=== PATIENT | male | born 1945 | race Caucasian/White ===

== ENCOUNTER 2016-12-24 18:04 | Inpatient (IN) | payer OTHER ==
[~2016-12-24] VITALS: Ht 167.6 cm; Wt 108.9 kg
[~2016-12-24 18:04] MED LIST: CALCITRIOL0.25 MCG PO; CARDURA4 MG PO; CATAPRES0.1 MG PO; Cardura PO; LANTUS 3 M100 UNITS1 SC; LISINOPRIL40 MG PO; Lasix PO; MIRALAX, GLYCOL1 PK1 PO; NOVOLOG PE100 UNITS/ SC; Norvasc PO; PROTONIX40 MG PO; Phoslo PO; REGLAN5 MG PO; Rocaltrol PO; SENSIPAR60 MG PO; SODIUM BICARBO325 M1 PO; Sodium Bicarbonate PO; ZEMPLAR5 MCG/ML IV; ZESTRIL20 MG PO; Zestril,Prinivil PO
[2016-12-24 19:30] LABS: BASOPHIL COUNT 0.1 K/uL (0-0.1); EOSINOPHIL (%) 5.5 % (0-5); EOSINOPHIL COUNT 0.7 K/uL (0-0.3); IMMATURE GRANULOCYTE (%) 0.6 % (0.0-0.7); IMMATURE GRANULOCYTE COUNT 0.1 K/uL; LYMPHOCYTE COUNT 0.5 K/uL (1.0-2.8); MCHC 33.6 G/DL (30.0-36.0); MCV 89.5 FL (86-99); MEAN PLAT.VOLUME 9.6 uM^3 (9.0-12.4); MONOCYTE (%) 8.9 % (3-12); MONOCYTE COUNT 1.1 K/uL (0-0.8); NEUTROPHIL (%) 80.2 % (45-76); PLATELET COUNT 252 K/uL (156-360); RBC DIS.WIDTH-CV 15.3 % (11.8-14.6); RBC DIS.WIDTH-SD 49.1 % (39-53); RED BLOOD COUNT 3.13 M/uL (4.00-5.50); WHITE BLOOD COUNT 12.4 K/uL (4.1-10.2)
[2016-12-24 19:33] LABS: CHLORIDE 86 mEq/L (99-109); POTASSIUM 4.5 mEq/L (3.7-5.4); SODIUM 125 mEq/L (136-147)
[2016-12-24 19:34] LABS: GLUCOSE 79 mg/dL (70-99)
[2016-12-24 19:36] LABS: ANION GAP 17 MEQ/L (2-14)
[2016-12-24 19:38] LABS: GFR ESTIMATE (CALCULATED) 7 mL/min/
[2016-12-24 19:39] LABS: UREA NITROGEN (BUN) 75 mg/dL (9-23)
[2016-12-24 19:45] LABS: TROP-I INTERPRETATION POSITIVE
[2016-12-24 19:46] LABS: TROPONIN-I 0.79 ng/mL (0.0-0.30)
[2016-12-24 20:22] LABS: INTER. NORMALIZED RATIO 1.2
[2016-12-24 20:24] LABS: PTT 38.5 SEC (25-37)
[2016-12-24] MEDS ORDERED: FOSRENOL1000 MG PO ×2 (21:04)
[2016-12-24] MEDS ORDERED: ATORVASTATIN CA40 MG PO (21:05)
[2016-12-24] MEDS ORDERED: NEXIUM40 MG PO (21:05)
[2016-12-24] MEDS ORDERED: LIDOCAINE-PRIL1 EACH TP (21:05)
[2016-12-24] MEDS ORDERED: [UNRECOGNIZED DRUG - OTHER] PO (21:05)
[2016-12-24 22:55] VITALS: BP 167/74
[2016-12-24 23:54] LABS: POINT-OF-CARE METER ID UU13113698
[2016-12-25 00:44] VITALS: BP 146/70
[2016-12-25 01:28] LABS: TROP-I INTERPRETATION POSITIVE
[2016-12-25 01:31] LABS: TROPONIN-I 0.77 ng/mL (0.0-0.30)
[2016-12-25 03:50] VITALS: BP 156/73
[2016-12-25 04:48] LABS: HEMATOCRIT 27.2 % (38.0-50.0); MCH 30.6 PG (29.0-34.0); MCHC 33.8 G/DL (30.0-36.0); MCV 90.4 FL (86-99); PLATELET COUNT 233 K/uL (156-360); RBC DIS.WIDTH-CV 15.3 % (11.8-14.6); RBC DIS.WIDTH-SD 50.1 % (39-53); RED BLOOD COUNT 3.01 M/uL (4.00-5.50); WHITE BLOOD COUNT 10.6 K/uL (4.1-10.2)
[2016-12-25 05:00] LABS: CHLORIDE 85 mEq/L (99-109); SODIUM 127 mEq/L (136-147)
[2016-12-25 05:02] LABS: GLUCOSE 55 mg/dL (70-99)
[2016-12-25 05:03] LABS: ANION GAP 19 MEQ/L (2-14)
[2016-12-25 05:06] LABS: GFR ESTIMATE (CALCULATED) 7 mL/min/
[2016-12-25 05:07] LABS: UREA NITROGEN (BUN) 80 mg/dL (9-23)
[2016-12-25 05:10] LABS: TROP-I INTERPRETATION POSITIVE
[2016-12-25 05:15] LABS: TROPONIN-I 0.73 ng/mL (0.0-0.30)
[2016-12-25 07:25] VITALS: BP 145/82
[2016-12-25 08:34] LABS: POINT-OF-CARE USER ID NUTSLF44
[2016-12-25 09:47] LABS: POINT-OF-CARE USER ID NUTSLF44
[2016-12-25 12:23] LABS: POINT-OF-CARE USER ID NUTSLF44
[2016-12-25 21:28] LABS: INTER. NORMALIZED RATIO 1.5; PROTHROMBIN TIME 17.1 SEC (10.2-12.9)
[2016-12-25 21:39] LABS: PTT 83.1 SEC (25-37)
[2016-12-25 21:45] VITALS: BP 142/65
[2016-12-25 22:04] LABS: POINT-OF-CARE METER ID UU13113698
[2016-12-25 22:44] VITALS: BP 140/67
[2016-12-25 23:22] VITALS: BP 140/62
[2016-12-26 03:59] VITALS: BP 138/64
[2016-12-26 07:15] VITALS: BP 163/70
[2016-12-26 07:45] LABS: POINT-OF-CARE METER ID UU13113698
[2016-12-26 08:00] LABS: HEMATOCRIT 26.9 % (38.0-50.0); MCH 30.1 PG (29.0-34.0); MCHC 33.8 G/DL (30.0-36.0); MCV 89.1 FL (86-99); MEAN PLAT.VOLUME 9.7 uM^3 (9.0-12.4); PLATELET COUNT 281 K/uL (156-360); RBC DIS.WIDTH-CV 15.4 % (11.8-14.6); RED BLOOD COUNT 3.02 M/uL (4.00-5.50)
[2016-12-26 08:33] LABS: ANION GAP 18 MEQ/L (2-14); CHLORIDE 81 MEQ/L (99-109); GLUCOSE 66 mg/dL (70-99); SAMPLE HEMOLYSIS CHECK 0; SAMPLE ICTERIC CHECK 0; SAMPLE LIPEMIA CHECK 0; UREA NITROGEN (BUN) 84 mg/dL (9-23)
[2016-12-26 08:34] LABS: GFR ESTIMATE (CALCULATED) 6 mL/min/; POTASSIUM 6.1 MEQ/L (3.7-5.4); SODIUM 120 MEQ/L (136-147)
[2016-12-26 09:28] LABS: POINT-OF-CARE METER ID UU13113681
[2016-12-26 10:17] LABS: MAGNESIUM 2.3 mg/dl (1.3-2.7)
[2016-12-26 12:24] LABS: POINT-OF-CARE METER ID UU13113698; POINT-OF-CARE USER ID NUTSLF44
[2016-12-26 12:37] VITALS: BP 175/74; BP 75/74
[2016-12-26 13:34] LABS: POINT-OF-CARE METER ID UU13113698; POINT-OF-CARE USER ID NUTSLF44
[2016-12-26 16:00] VITALS: BP 167/70
[2016-12-26 16:54] LABS: HEMATOCRIT 27.3 % (38.0-50.0); MCHC 35.2 G/DL (30.0-36.0); MEAN PLAT.VOLUME 9.4 uM^3 (9.0-12.4); PLATELET COUNT 288 K/uL (156-360); RBC DIS.WIDTH-CV 15.7 % (11.8-14.6); RBC DIS.WIDTH-SD 51.3 % (39-53)
[2016-12-26 17:19] LABS: POINT-OF-CARE METER ID UU13113698; POINT-OF-CARE USER ID NUTSLF44
[2016-12-26 19:50] LABS: ANION GAP 15 MEQ/L (2-14); CHLORIDE 88 MEQ/L (99-109); SAMPLE HEMOLYSIS CHECK 0; SAMPLE ICTERIC CHECK 0; SAMPLE LIPEMIA CHECK 0; TOTAL BILIRUBIN 0.5 MG/DL (0.0-1.0)
[2016-12-26 19:52] LABS: POTASSIUM 4.1 MEQ/L (3.7-5.4); SODIUM 134 MEQ/L (136-147)
[2016-12-26 19:55] LABS: ALKALINE PHOSPHATASE 107 IU/L (3-129); GFR ESTIMATE (CALCULATED) 11 mL/min/
[2016-12-26 20:03] LABS: GLUCOSE 130 mg/dL (70-99); UREA NITROGEN (BUN) 35 mg/dL (9-23)
[2016-12-26 20:25] VITALS: BP 152/68
[2016-12-26 22:02] LABS: POINT-OF-CARE METER ID UU13113803
[2016-12-26 23:26] VITALS: BP 129/56
[2016-12-27 04:15] VITALS: BP 157/69
[2016-12-27 07:44] LABS: ANION GAP 15 MEQ/L (2-14); CHLORIDE 90 MEQ/L (99-109); GFR ESTIMATE (CALCULATED) 9 mL/min/; GLUCOSE 126 mg/dL (70-99); SAMPLE HEMOLYSIS CHECK 0; SAMPLE ICTERIC CHECK 0; SAMPLE LIPEMIA CHECK 0; SODIUM 133 MEQ/L (136-147); UREA NITROGEN (BUN) 37 mg/dL (9-23)
[2016-12-27 07:47] VITALS: BP 199/91
[2016-12-27 07:55] LABS: POINT-OF-CARE METER ID UU13113803
[2016-12-27 08:16] LABS: POINT-OF-CARE METER ID UU13113803
[2016-12-27 09:30] LABS: POINT-OF-CARE METER ID UU13113803
[2016-12-27 11:37] LABS: POINT-OF-CARE METER ID UU13113803
[2016-12-27 12:08] VITALS: BP 138/58
[2016-12-27 15:45] VITALS: BP 124/68
[2016-12-27 16:34] LABS: POINT-OF-CARE METER ID UU13113803
[2016-12-27 18:59] LABS: ANION GAP 17 MEQ/L (2-14); CHLORIDE 90 MEQ/L (99-109); GFR ESTIMATE (CALCULATED) 8 mL/min/; GLUCOSE 110 mg/dL (70-99); POTASSIUM 4.7 MEQ/L (3.7-5.4); SAMPLE HEMOLYSIS CHECK 0; SAMPLE ICTERIC CHECK 0; SAMPLE LIPEMIA CHECK 0; SODIUM 135 MEQ/L (136-147); UREA NITROGEN (BUN) 44 mg/dL (9-23)
[2016-12-27 21:00] VITALS: BP 117/51
[2016-12-28 02:00] VITALS: BP 135/61
[2016-12-28 04:31] VITALS: BP 130/74
[2016-12-28 05:34] LABS: HEMATOCRIT 26.3 % (38.0-50.0); MCH 31.7 PG (29.0-34.0); MCHC 33.5 G/DL (30.0-36.0); MCV 94.6 FL (86-99); MEAN PLAT.VOLUME 9.6 uM^3 (9.0-12.4); PLATELET COUNT 265 K/uL (156-360); RBC DIS.WIDTH-CV 15.8 % (11.8-14.6); RBC DIS.WIDTH-SD 54.5 % (39-53); RED BLOOD COUNT 2.78 M/uL (4.00-5.50); WHITE BLOOD COUNT 12.4 K/uL (4.1-10.2)
[2016-12-28 06:20] LABS: ANION GAP 16 MEQ/L (2-14); CHLORIDE 89 MEQ/L (99-109); GFR ESTIMATE (CALCULATED) 8 mL/min/; GLUCOSE 96 mg/dL (70-99); POTASSIUM 4.8 MEQ/L (3.7-5.4); SAMPLE HEMOLYSIS CHECK 0; SAMPLE ICTERIC CHECK 0; SAMPLE LIPEMIA CHECK 0; SODIUM 133 MEQ/L (136-147); UREA NITROGEN (BUN) 47 mg/dL (9-23)
[2016-12-28 07:40] LABS: POINT-OF-CARE METER ID UU13113781
[2016-12-28 07:49] LABS: ADD MIUA? YES; BILIRUBIN NEGATIVE; BLOOD MODERATE; COLOR YELLOW ((YELLOW)); GLUCOSE (STRIP) 150; KETONES NEGATIVE; LEUKOCYTES MODERATE; NITRITE NEGATIVE; PROTEIN (STRIP) 100; SPECIFIC GRAVITY 1.015 (1.000-1.030); UROBILINOGEN 0.2 MG/DL (0.2-1.0)
[2016-12-28 07:57] VITALS: BP 130/61
[2016-12-28 08:14] LABS: RED BLOOD CELLS 20-30 /HPF (0-5); WHITE BLOOD CELLS TNTC /HPF (0-5)
[2016-12-28 08:15] LABS: BACTERIA 2+ /HPF; CASTS NONE SEEN /LPF; CRYSTALS PRESENT; EPITHELIAL CELLS 2+ /HPF; MUCUS NONE SEEN /LPF
[2016-12-28 08:16] LABS: AMORPHOUS URATES CRYSTALS 4+
[2016-12-28 12:26] VITALS: BP 121/56
[2016-12-28 12:42] LABS: POINT-OF-CARE METER ID UU13113781
[2016-12-28 15:55] VITALS: BP 174/73
[2016-12-28 19:45] VITALS: BP 158/70
[2016-12-29 00:27] VITALS: BP 145/81
[2016-12-29 02:17] VITALS: BP 132/74
[2016-12-29 07:30] VITALS: BP 157/63
[2016-12-29 08:04] LABS: POINT-OF-CARE USER ID ENVKC36
[2016-12-29 11:32] LABS: POINT-OF-CARE METER ID UU13113803
[2016-12-29 12:00] VITALS: BP 156/67
[2016-12-29 15:54] VITALS: BP 163/67
[2016-12-29 16:32] LABS: POINT-OF-CARE USER ID ENVKC36
[2016-12-29 20:30] VITALS: BP 187/94
[2016-12-30] VITALS (7 sets, daily range): BP systolic 104–175; BP diastolic 51–75
[2016-12-30 06:12] LABS: HEMATOCRIT 28.4 % (38.0-50.0); MCH 29.8 PG (29.0-34.0); MCV 96.3 FL (86-99); MEAN PLAT.VOLUME 9.6 uM^3 (9.0-12.4); PLATELET COUNT 298 K/uL (156-360); RBC DIS.WIDTH-CV 15.8 % (11.8-14.6); RBC DIS.WIDTH-SD 55.8 % (39-53); RED BLOOD COUNT 2.95 M/uL (4.00-5.50); WHITE BLOOD COUNT 11.3 K/uL (4.1-10.2)
[2016-12-30 07:24] LABS: POINT-OF-CARE METER ID UU13113803
[2016-12-30 09:00] LABS: ANION GAP 13 MEQ/L (2-14); CHLORIDE 95 MEQ/L (99-109); GFR ESTIMATE (CALCULATED) 9 mL/min/; POTASSIUM 4.5 MEQ/L (3.7-5.4); SAMPLE HEMOLYSIS CHECK 0; SAMPLE ICTERIC CHECK 0; SAMPLE LIPEMIA CHECK 0; SODIUM 136 MEQ/L (136-147); UREA NITROGEN (BUN) 33 mg/dL (9-23)
[2016-12-30 09:01] LABS: GLUCOSE 177 mg/dL (70-99)
[2016-12-30 16:26] LABS: POINT-OF-CARE METER ID UU13113803
[2016-12-30 20:47] LABS: POINT-OF-CARE METER ID UU13113803
[2016-12-31 04:22] VITALS: BP 156/66
[2016-12-31 07:45] LABS: POINT-OF-CARE METER ID UU13113781
[2016-12-31 08:00] VITALS: BP 110/62
[2016-12-31 11:42] LABS: POINT-OF-CARE METER ID UU13113781
[2016-12-31 11:48] VITALS: BP 111/51
[2016-12-31 13:30] LABS: HBSG INDEX 0.17
[2016-12-31 14:42] LABS: HPCA INDEX 2.91
[2016-12-31 16:25] VITALS: BP 117/52
[2016-12-31 16:30] LABS: POINT-OF-CARE METER ID UU13113803
[2016-12-31 19:38] VITALS: BP 154/58
[2016-12-31 23:50] VITALS: BP 167/70
[2017-01-01 04:10] VITALS: BP 156/70
[2017-01-01 07:10] VITALS: BP 129/55
[2017-01-01 07:14] LABS: POINT-OF-CARE METER ID UU13113698
[2017-01-01 09:26] LABS: BASOPHIL COUNT 0.1 K/uL (0-0.1); EOSINOPHIL (%) 5.4 % (0-5); EOSINOPHIL COUNT 0.6 K/uL (0-0.3); HEMATOCRIT 29.6 % (38.0-50.0); IMMATURE GRANULOCYTE (%) 0.7 % (0.0-0.7); IMMATURE GRANULOCYTE COUNT 0.1 K/uL; INSTRUMENT ABS NEUTROPHIL CT 8.1 K/uL; LYMPHOCYTE COUNT 0.9 K/uL (1.0-2.8); MCH 30.8 PG (29.0-34.0); MCHC 32.1 G/DL (30.0-36.0); MCV 96.1 FL (86-99); MEAN PLAT.VOLUME 9.5 uM^3 (9.0-12.4); MONOCYTE (%) 10.8 % (3-12); MONOCYTE COUNT 1.2 K/uL (0-0.8); NEUTROPHIL (%) 74.2 % (45-76); NEUTROPHIL COUNT 8.1 K/uL (1.8-6.4); PLATELET COUNT 314 K/uL (156-360); RBC DIS.WIDTH-CV 15.8 % (11.8-14.6); RBC DIS.WIDTH-SD 55.2 % (39-53); RED BLOOD COUNT 3.08 M/uL (4.00-5.50)
[2017-01-01 09:43] LABS: ANION GAP 15 MEQ/L (2-14); CHLORIDE 95 MEQ/L (99-109); SAMPLE HEMOLYSIS CHECK 0; SAMPLE ICTERIC CHECK 0; SAMPLE LIPEMIA CHECK 0; SODIUM 136 MEQ/L (136-147)
[2017-01-01 09:48] LABS: GFR ESTIMATE (CALCULATED) 9 mL/min/; GLUCOSE 172 mg/dL (70-99); UREA NITROGEN (BUN) 32 mg/dL (9-23)
[2017-01-01 12:20] VITALS: BP 112/50
[2017-01-01] MEDS ORDERED: LEVEMIR100 UNIT/2 SC (15:07)
[2017-01-01] MEDS ORDERED: ASPIR-LOW81 MG PO (15:07)
[2017-01-01] MEDS ORDERED: CLOPIDOGREL75 MG PO (15:07)
[2017-01-01] MEDS ORDERED: LOPRESSOR50 MG PO (15:07)
[2017-01-01] MEDS ORDERED: RENVELA800 MG PO (15:07)
[2017-01-01 16:08] VITALS: BP 103/59
[2017-01-01 16:20] LABS: POINT-OF-CARE METER ID UU13113698
[2017-01-02 07:56] LABS: HCV RNA (IU/mL) <15 IU/mL (<15)
[2017-01-03 19:30] LABS: HCV RNA (LOG IU/mL) <1.18 (<1.18)
== END 2017-01-01 18:52 | DRG 250 ==
LOC: EME 18:04 → EDOF 20:33 → 4EAST 20:33 → ENRESERV 20:40 → 4EAST 22:43
PROVIDERS: Emergency Medicine; Hospitalist; Internal Medicine; Internal Medicine Nephrology; Physician Assistant
DX: I21.4 Non-ST elevation (NSTEMI) myocardial infarction (principal); I25.10 Atherosclerotic heart disease of native coronary artery without angina pectoris; I25.84 Coronary atherosclerosis due to calcified coronary lesion; N39.0 Urinary tract infection, site not specified; G93.40 Encephalopathy, unspecified; I12.0 Hypertensive chronic kidney disease with stage 5 chronic kidney disease or end stage renal disease; E11.22 Type 2 diabetes mellitus with diabetic chronic kidney disease; N18.6 End stage renal disease; D50.9 Iron deficiency anemia, unspecified; E11.51 Type 2 diabetes mellitus with diabetic peripheral angiopathy without gangrene; E11.649 Type 2 diabetes mellitus with hypoglycemia without coma; E11.621 Type 2 diabetes mellitus with foot ulcer; L97.519 Non-pressure chronic ulcer of other part of right foot with unspecified severity; D63.1 Anemia in chronic kidney disease; E66.2 Morbid (severe) obesity with alveolar hypoventilation; Z68.41 Body mass index [BMI] 40.0-44.9, adult; R09.02 Hypoxemia; N25.81 Secondary hyperparathyroidism of renal origin; I27.2 Other secondary pulmonary hypertension; K76.0 Fatty (change of) liver, not elsewhere classified; E11.43 Type 2 diabetes mellitus with diabetic autonomic (poly)neuropathy; K31.84 Gastroparesis; I48.91 Unspecified atrial fibrillation; E11.319 Type 2 diabetes mellitus with unspecified diabetic retinopathy without macular edema; S81.802A Unspecified open wound, left lower leg, initial encounter; S81.801A Unspecified open wound, right lower leg, initial encounter; S51.812A Laceration without foreign body of left forearm, initial encounter; X58.XXXA Exposure to other specified factors, initial encounter; I87.8 Other specified disorders of veins; K21.9 Gastro-esophageal reflux disease without esophagitis; L40.9 Psoriasis, unspecified; Z78.1 Physical restraint status; Z79.4 Long term (current) use of insulin; Z82.49 Family history of ischemic heart disease and other diseases of the circulatory system; Z83.3 Family history of diabetes mellitus; Z99.2 Dependence on renal dialysis
CPT/HCPCS: 36600; 70450; 70551; 71010; 80048; 80048 91; 80053; 80069; 81003; 82140; 82803; 82948; 83735; 83880; 84100; 84484; 85025; 85027; 85347; 85610; 85730; 86803; 87086; 87340; 87522 90; 93005; 93306; 94660; 94799; 97530 GO; 99281; 99285; C1725; C1769; C1887; C1894; J0583; J0696; J0881; J1644; J1815; J2060; J2405; J2543; J3370; J7042; J7050; J7070

== ENCOUNTER 2017-11-12 14:46 | Day surgery (SDC) | payer OTHER ==
[~2017-11-12] VITALS: Ht 167.6 cm; Wt 115.0 kg
[~2017-11-12 14:46] MED LIST changes: +ASPIR-LOW81 MG PO; +ATORVASTATIN CA40 MG PO; +CLOPIDOGREL75 MG PO; +FOSRENOL1000 MG PO; +LEVEMIR100 UNIT/2 SC; +LIDOCAINE-PRIL1 EACH TP; +LOPRESSOR50 MG PO; +NEXIUM40 MG PO; +RENVELA800 MG PO; +[UNRECOGNIZED DRUG - OTHER] PO
[2017-11-12] MEDS ORDERED: LANTUS 3 M100 UNITS1 SC (16:50)
[2017-11-12] MEDS ORDERED: VICTOZA 2-0.6 MG/0.1 SC (16:51)
[2017-11-12 16:52] LABS: BASOPHIL (%) 0.7 % (0-1); BASOPHIL COUNT 0.1 K/uL (0-0.1); EOSINOPHIL (%) 1.3 % (0-5); EOSINOPHIL COUNT 0.1 K/uL (0-0.3); HEMATOCRIT 31.5 % (38.0-50.0); HEMOGLOBIN 10.5 G/DL (12.5-16.6); IMMATURE GRANULOCYTE (%) 0.3 % (0.0-0.7); LYMPHOCYTE (%) 8.6 % (15-42); LYMPHOCYTE COUNT 0.7 K/uL (1.0-2.8); MCH 31.1 PG (29.0-34.0); MCHC 33.3 G/DL (30.0-36.0); MCV 93.2 FL (86-99); MONOCYTE (%) 11.4 % (3-12); MONOCYTE COUNT 0.9 K/uL (0-0.8); NEUTROPHIL (%) 77.7 % (45-76); NEUTROPHIL COUNT 5.9 K/uL (1.8-6.4); PLATELET COUNT 195 K/uL (156-360); RBC DIS.WIDTH-CV 16.6 % (11.8-14.6); RBC DIS.WIDTH-SD 56.2 % (39-53); RED BLOOD COUNT 3.38 M/uL (4.00-5.50); WHITE BLOOD COUNT 7.6 K/uL (4.1-10.2)
[2017-11-12 16:55] VITALS: BP 142/62
[2017-11-12 17:15] LABS: CHLORIDE 87 MEQ/L (99-109); CREATININE 8.9 MG/DL (0.6-1.3); GFR ESTIMATE (CALCULATED) 6 mL/min/ (58.99-99999); GLUCOSE 123 mg/dL (70-99); POTASSIUM 4.2 MEQ/L (3.7-5.4); SODIUM 129 MEQ/L (136-147); UREA NITROGEN (BUN) 76 mg/dL (9-23)
[2017-11-13 03:44] VITALS: BP 120/57
== END 2017-11-13 05:00 | disposition home or self-care (01) ==
LOC: SDC 14:46 → 2SOUTH 11-13 02:18 → ENRESERV 11-13 03:03 → 2EAST 11-13 03:35
PROVIDERS: Surgery
PROC: 057F3ZZ Dilation of Left Cephalic Vein, Percutaneous Approach (ICD-10-PCS; principal; 2017-11-13)
DX: T82.858A Stenosis of other vascular prosthetic devices, implants and grafts, initial encounter (principal); I12.0 Hypertensive chronic kidney disease with stage 5 chronic kidney disease or end stage renal disease; E11.22 Type 2 diabetes mellitus with diabetic chronic kidney disease; N18.6 End stage renal disease; Z99.2 Dependence on renal dialysis; I25.10 Atherosclerotic heart disease of native coronary artery without angina pectoris; Z88.7 Allergy status to serum and vaccine
CPT/HCPCS: 80048; 82948; 85025; 87641; C1725; C1769; C1887; C1894; G0378; J0690; J1644; J2405; J3010; J7040

== ENCOUNTER 2017-11-19 05:39 | Day surgery (SDC) | payer OTHER ==
[~2017-11-19] VITALS: Ht 167.6 cm; Wt 110.7 kg
[~2017-11-19 05:39] MED LIST changes: +VICTOZA 2-0.6 MG/0.1 SC; +VICTOZA0.6 MG/0.1 SC
[2017-11-19 06:03] LABS: HEMATOCRIT 32.7 % (38.0-50.0); HEMOGLOBIN 11.2 G/DL (12.5-16.6); MCV 93.4 FL (86-99)
[2017-11-19 06:14] LABS: CHLORIDE 92 mEq/L (99-109); SODIUM 133 mEq/L (136-147)
[2017-11-19 06:15] LABS: GLUCOSE 137 mg/dL (70-99)
[2017-11-19 06:16] VITALS: BP 133/62
[2017-11-19 06:19] LABS: GFR ESTIMATE (CALCULATED) 7 mL/min/ (58.99-99999)
[2017-11-19 06:20] LABS: UREA NITROGEN (BUN) 56 mg/dL (9-23)
[2017-11-19 06:21] LABS: CREATININE 7.9 mg/dL (0.6-1.3)
[2017-11-19 10:05] VITALS: BP 105/50
[2017-11-19 11:05] VITALS: BP 124/58
== END 2017-11-19 11:05 | disposition home or self-care (01) ==
LOC: SDC 05:39
PROVIDERS: Surgery
DX: T82.858A Stenosis of other vascular prosthetic devices, implants and grafts, initial encounter (principal); Y83.2 Surgical operation with anastomosis, bypass or graft as the cause of abnormal reaction of the patient, or of later complication, without mention of misadventure at the time of the procedure; I12.0 Hypertensive chronic kidney disease with stage 5 chronic kidney disease or end stage renal disease; E11.22 Type 2 diabetes mellitus with diabetic chronic kidney disease; N18.6 End stage renal disease; I48.0 Paroxysmal atrial fibrillation; Z99.2 Dependence on renal dialysis; Z79.4 Long term (current) use of insulin; Z79.02 Long term (current) use of antithrombotics/antiplatelets; Z79.82 Long term (current) use of aspirin; K21.9 Gastro-esophageal reflux disease without esophagitis; D64.9 Anemia, unspecified; Z99.3 Dependence on wheelchair
CPT/HCPCS: 80048; 82948; 85014; 85018; 87641; 93005; C1725; C1769; C1894; J0690; J1644; J3010

== ENCOUNTER 2017-12-06 14:55 | Day surgery (SDC) | payer OTHER ==
[~2017-12-06] VITALS: Ht 167.6 cm; Wt 111.0 kg
[2017-12-06 16:13] VITALS: BP 70/76
[2017-12-06 16:13] LABS: HEMATOCRIT 30.8 % (38.0-50.0); HEMOGLOBIN 10.5 G/DL (12.5-16.6); MCV 92.8 FL (86-99)
[2017-12-06 16:22] LABS: CHLORIDE 91 mEq/L (99-109); POTASSIUM 4.2 mEq/L (3.7-5.4); SODIUM 132 mEq/L (136-147)
[2017-12-06 16:24] LABS: GLUCOSE 146 mg/dL (70-99)
[2017-12-06 16:28] LABS: CREATININE 8.1 mg/dL (0.6-1.3); GFR ESTIMATE (CALCULATED) 7 mL/min/ (58.99-99999)
[2017-12-06 16:29] LABS: UREA NITROGEN (BUN) 48 mg/dL (9-23)
[2017-12-06 20:50] VITALS: BP 182/81
[2017-12-06 21:33] VITALS: BP 180/60
== END 2017-12-06 21:30 | disposition home or self-care (01) ==
LOC: SDC 14:55
PROVIDERS: Anesthesiology; Surgery
PROC: 03783ZZ Dilation of Left Brachial Artery, Percutaneous Approach (ICD-10-PCS; principal; 2017-12-06)
DX: T82.858A Stenosis of other vascular prosthetic devices, implants and grafts, initial encounter (principal); I12.0 Hypertensive chronic kidney disease with stage 5 chronic kidney disease or end stage renal disease; N18.6 End stage renal disease; Z99.2 Dependence on renal dialysis; I48.91 Unspecified atrial fibrillation; Z79.02 Long term (current) use of antithrombotics/antiplatelets; Z79.82 Long term (current) use of aspirin; Z88.7 Allergy status to serum and vaccine
CPT/HCPCS: 80048; 82948; 85014; 85018; 87641; C1725; C1769; C1894; J0690; J1644; J2405; J3010